=== PATIENT | male | born 1985 | race Hispanic/Latino ===

== ENCOUNTER 2016-06-18 13:08 | Emergency (ER) | payer SELFPAY ==
[~2016-06-18] VITALS: Ht 195.6 cm; Wt 103.4 kg
[~2016-06-18 13:08] MED LIST: BENTYL10 MG PO; CIPRO500 MG PO; DURLAZA162.5 MG PO; FLAGYL500 MG PO; MOTRIN600 MG PO; MOTRIN800 MG PO; Maalox, Mylanta PO; NAPROSYN500 MG PO; PROTONIX40 MG PO
[2016-06-18 15:32] LABS: EOSINOPHIL (%) 1.4 % (0-5); EOSINOPHIL COUNT 0.1 K/uL (0-0.3); HEMATOCRIT 43.5 % (38.0-50.0); IMMATURE GRANULOCYTE (%) 0.1 % (0.0-0.7); IMMATURE GRANULOCYTE COUNT 0.1 K/uL; LYMPHOCYTE COUNT 2.3 K/uL (1.0-2.8); MCH 27.9 PG (29.0-34.0); MCHC 34.7 G/DL (30.0-36.0); MCV 80.3 FL (86-99); MEAN PLAT.VOLUME 10.5 uM^3 (9.0-12.4); MONOCYTE (%) 8.8 % (3-12); MONOCYTE COUNT 0.7 K/uL (0-0.8); NEUTROPHIL (%) 62.2 % (45-76); NEUTROPHIL COUNT 5.3 K/uL (1.8-6.4); PLATELET COUNT 295 K/uL (156-360); RBC DIS.WIDTH-SD 37.2 % (39-53); RED BLOOD COUNT 5.42 M/uL (4.00-5.50); WHITE BLOOD COUNT 8.4 K/uL (4.1-10.2)
[2016-06-18 15:39] LABS: INFLUENZA A VIRAL ANTIGEN NEGATIVE; INFLUENZA B VIRAL ANTIGEN NEGATIVE
[2016-06-18 15:46] LABS: CHLORIDE 104 mEq/L (99-109); POTASSIUM 4.1 mEq/L (3.7-5.4); SODIUM 140 mEq/L (136-147)
[2016-06-18 15:48] LABS: GLUCOSE 92 mg/dL (70-99)
[2016-06-18 15:49] LABS: ANION GAP 8 MEQ/L (2-14)
[2016-06-18 15:51] LABS: GFR ESTIMATE (CALCULATED) > 59 mL/min/
[2016-06-18 15:52] LABS: UREA NITROGEN (BUN) 12 mg/dL (9-23)
[2016-06-18 16:17] LABS: ADD MIUA? NO; BILIRUBIN NEGATIVE; BLOOD NEGATIVE; COLOR YELLOW ((YELLOW)); GLUCOSE (STRIP) NEGATIVE; KETONES NEGATIVE; LEUKOCYTES NEGATIVE; NITRITE NEGATIVE; PROTEIN (STRIP) NEGATIVE; SPECIFIC GRAVITY 1.011 (1.000-1.030); UROBILINOGEN 0.2 MG/DL (0.2-1.0)
[2016-06-18 16:31] LABS: C-REACTIVE PROTEIN 12.4 MG/L (0-10); SAMPLE HEMOLYSIS CHECK 0; SAMPLE ICTERIC CHECK 0; SAMPLE LIPEMIA CHECK 0
[2016-06-18 18:47] LABS: ERTH.SED.RATE 24 MM/HR (0-15)
[2016-06-18 19:37] LABS: APPEARANCE CLEAR/COLORLESS; CSF EOSINOPHILS 0 % (0-25); MONO RAW COUNT 50; MONONUCLEAR WBC'S 100 % (50-90); POLYNUCLEAR WBC'S 0 % (0-3); RED CELL AREA COUNTED 18; RED CELL COUNT 137 /MM^3 (0-1); RED CELL DILUTION 1; WBC AREA COUNTED 18; WBC DILUTION 1; WHITE CELL COUNT 7 /MM^3 (0-5); WHITE CELL RAW COUNT 13
[2016-06-18 19:38] LABS: APPEARANCE (RECHECK) CLEAR/COLORLESS; CSF TUBE NUMBER (RECHECK) TUBE #1
[2016-06-18 19:43] LABS: RED CELL DILUTION 1
[2016-06-18 19:44] LABS: RED CELL COUNT (RECHECK) 1594 /MM^3 (0-1)
[2016-06-18] MEDS ORDERED: MOTRIN800 MG PO (20:17)
[2016-06-18] MEDS ORDERED: FIORICET 50-301 EACH PO (20:17)
[2016-06-18] MEDS ORDERED: PREDNISONE20 MG PO (20:17)
[2016-06-18] MEDS ORDERED: TESSALON PERLE100 MG PO (20:17)
[2016-06-18] MEDS ORDERED: ZOFRAN ODT4 MG PO (20:20)
[2016-06-18 20:54] VITALS: BP 132/73
[2016-06-18] MEDS ORDERED: ZANTAC150 MG PO (21:09)
[2016-06-18] MEDS ORDERED: BENADRYL50 MG PO (21:09)
== END 2016-06-18 21:25 | disposition home or self-care (01) ==
LOC: EME 13:08
PROVIDERS: Physician Assistant
PROC: 009U3ZX Drainage of Spinal Canal, Percutaneous Approach, Diagnostic (ICD-10-PCS; principal; 2016-06-18)
DX: J06.9 Acute upper respiratory infection, unspecified (principal); J20.9 Acute bronchitis, unspecified; R51 Headache; T50.995A Adverse effect of other drugs, medicaments and biological substances, initial encounter; Z87.891 Personal history of nicotine dependence
CPT/HCPCS: 70450; 71020; 80048; 81003; 82945; 84157; 85025; 85651; 86140; 87040; 87070; 87205; 87502; 89051; J1885; J2405; J2930; J7512

== ENCOUNTER 2016-06-23 22:10 | Emergency (ER) | payer SELFPAY ==
[~2016-06-23] VITALS: Ht 182.9 cm; Wt 103.2 kg
[~2016-06-23 22:10] MED LIST changes: +BENADRYL50 MG PO; +FIORICET 50-301 EACH PO; +PREDNISONE20 MG PO; +TESSALON PERLE100 MG PO; +ZANTAC150 MG PO; +ZOFRAN ODT4 MG PO
[2016-06-24 01:32] LABS: HEMATOCRIT 43.3 % (38.0-50.0); MCHC 34.9 G/DL (30.0-36.0); MCV 80.2 FL (86-99); MEAN PLAT.VOLUME 10.3 uM^3 (9.0-12.4); PLATELET COUNT 268 K/uL (156-360); RBC DIS.WIDTH-SD 37.6 % (39-53); WHITE BLOOD COUNT 8.7 K/uL (4.1-10.2)
[2016-06-24 01:41] LABS: CHLORIDE 101 mEq/L (99-109); POTASSIUM 3.4 mEq/L (3.7-5.4); SODIUM 140 mEq/L (136-147)
[2016-06-24 01:43] LABS: GLUCOSE 102 mg/dL (70-99)
[2016-06-24 01:44] LABS: ANION GAP 11 MEQ/L (2-14)
[2016-06-24 01:47] LABS: GFR ESTIMATE (CALCULATED) > 59 mL/min/
[2016-06-24 01:49] LABS: UREA NITROGEN (BUN) 21 mg/dL (9-23)
[2016-06-24 03:40] LABS: INFLUENZA A VIRAL ANTIGEN NEGATIVE; INFLUENZA B VIRAL ANTIGEN NEGATIVE
[2016-06-24 04:28] VITALS: BP 132/90
== END 2016-06-24 04:31 | disposition home or self-care (01) ==
LOC: EME 22:10
PROVIDERS: Emergency Medicine
DX: G97.1 Other reaction to spinal and lumbar puncture (principal); Z87.891 Personal history of nicotine dependence
CPT/HCPCS: 80048; 85027; 87502; 99281; 99285; J0780; J1100; J1200; J1885; J3475; J7030

== ENCOUNTER 2017-04-06 08:19 | Emergency (ER) | payer SELFPAY ==
[~2017-04-06] VITALS: Ht 182.9 cm; Wt 105.6 kg
[2017-04-06 09:49] LABS: EOSINOPHIL (%) 1.9 % (0-5); EOSINOPHIL COUNT 0.1 K/uL (0-0.3); HEMATOCRIT 44.4 % (38.0-50.0); IMMATURE GRANULOCYTE (%) 0.2 % (0.0-0.7); INSTRUMENT ABS NEUTROPHIL CT 3.7 K/uL; LYMPHOCYTE COUNT 1.8 K/uL (1.0-2.8); MCH 27.9 PG (29.0-34.0); MCV 81.9 FL (86-99); MEAN PLAT.VOLUME 10.4 uM^3 (9.0-12.4); MONOCYTE (%) 9.9 % (3-12); MONOCYTE COUNT 0.6 K/uL (0-0.8); NEUTROPHIL (%) 58.8 % (45-76); NEUTROPHIL COUNT 3.7 K/uL (1.8-6.4); PLATELET COUNT 250 K/uL (156-360); RBC DIS.WIDTH-CV 12.5 % (11.8-14.6); RBC DIS.WIDTH-SD 37.4 % (39-53); RED BLOOD COUNT 5.42 M/uL (4.00-5.50); WHITE BLOOD COUNT 6.3 K/uL (4.1-10.2)
[2017-04-06 10:10] LABS: TROP-I INTERPRETATION NEGATIVE; TROPONIN-I < 0.01 ng/mL (0.0-0.30)
[2017-04-06 10:22] LABS: CHLORIDE 103 mEq/L (99-109); POTASSIUM 3.9 mEq/L (3.7-5.4); SODIUM 137 mEq/L (136-147)
[2017-04-06 10:24] LABS: GLUCOSE 95 mg/dL (70-99)
[2017-04-06 10:25] LABS: ANION GAP 7 MEQ/L (2-14)
[2017-04-06 10:28] LABS: GFR ESTIMATE (CALCULATED) > 59 mL/min/
[2017-04-06 10:29] LABS: UREA NITROGEN (BUN) 17 mg/dL (9-23)
[2017-04-06 10:35] LABS: D-DIMER ELISA < 150.00 ng/mLDDU (<230)
[2017-04-06 12:52] LABS: TROP-I INTERPRETATION NEGATIVE; TROPONIN-I < 0.01 ng/mL (0.0-0.30)
[2017-04-06] MEDS ORDERED: TYLENOL WITH C1 EACH PO (13:05)
[2017-04-06 13:54] VITALS: BP 113/76
== END 2017-04-06 13:55 | disposition home or self-care (01) ==
LOC: EME 08:19
PROVIDERS: Emergency Medicine
DX: R07.89 Other chest pain (principal); Z87.891 Personal history of nicotine dependence
CPT/HCPCS: 71010; 80048; 84484; 85025; 85379; 93005; 99281; 99284